=== PATIENT | female | born 2000 | race Caucasian/White ===

== ENCOUNTER 2024-09-14 08:39 | Outpatient (AMB) | payer OTHER, SELFPAY ==
--- NOTE | 2024-09-14 08:40 | A.OFFVIS_ITS ---
Vital Signs 09/14/24 08:43 Height 5 ft 8 in Weight 127 lb 3.307 oz BMI 19.3 BP 120/80 Blood Pressure Location Lt brachial Position Sitting Pulse 78 Pulse Source Pulse Oximeter Pulse Oximetry (%) 98 Oxygen Delivery Method Room Air Intake Visit Reasons: PsA Intake Note: Patient presents today for a PsA follow up. Allergies celebrex Allergy (Intermediate, Uncoded 09/14/24 08:44) Rash HPI HPI PsA: Details: She feels well. No recent flares. She had influenza a in July and received Tamiflu. Recovered. On sulfasalazine 1 g twice a day. Review of Systems Const All systems reviewed & are unremarkable except as noted in HPI and below Physical Exam Vital Signs: Last Vital Signs Pulse 78 09/14/24 08:43 BP 120/80 09/14/24 08:43 Pulse Ox 98 09/14/24 08:43 Oxygen Delivery Method Room Air 09/14/24 08:43 BMI result Body Mass Index 19.3 Const Other: General: Comfortable CVS: RRR Respiratory: clear to auscultation bilaterally. Good respiratory effort Skin: No lesions seen MSK: No tenderness of any joint. No synovitis. Normal range of motion of upper extremity and lower extremity. Assessment & Plan Assessment & Plan (1) Psoriatic arthritis: Comment: In remission on monotherapy with sulfasalazine. Labs from May 2024 reviewed. Rheumatology history: Presenting with episodic joint swelling. Sulfasalazine 12/2020- Code(s): L40.50 - Arthropathic psoriasis, unspecified Category: Medical Plan: Labs due for disease and drug monitoring on high-risk medication. Per patient's insurance labs are required to be done at [email or web address]. Lab requisition given to patient. Continue sulfasalazine 1000 mg twice a day Return to clinic in 3 months (2) Other ad terminal makeup operator (current) drug therapy: Code(s): Z79.899 - Other group home (current) drug therapy Category: Medical Plan: See above Orders: Orders Complete Blood Count Auto Diff Today Z79.60 - [facility] (current) use of unspecified immunomodulators and immunosuppressants Creatinine Today Z79.60 - terminal supervisor (current) use of unspecified immunomodulators and immunosuppressants Erythrocyte Sedimentation Rate Today Z79.899 - Other group home (current) drug therapy C Reactive Protein Today Z79.899 - Other group home (current) drug therapy Alanine Aminotransferase 12/13/24 Z79.60 - [facility] (current) use of unspecified immunomodulators and immunosuppressants Alanine Aminotransferase 03/13/25 Z79.60 - [facility] (current) use of unspecified immunomodulators and immunosuppressants Alanine Aminotransferase 06/11/25 Z79.60 - [facility] (current) use of unspecified immunomodulators and immunosuppressants Creatinine Today Z79.60 - terminal supervisor (current) use of unspecified immunomodulators and immunosuppressants Creatinine 12/13/24 Z79.60 - [facility] (current) use of unspecified immunomodulators and immunosuppressants Complete Blood Count Auto Diff Today Z79.60 - [facility] (current) use of unspecified immunomodulators and immunosuppressants Complete Blood Count Auto Diff 12/13/24 Z79.60 - [facility] (current) use of unspecified immunomodulators and immunosuppressants Complete Blood Count Auto Diff 03/13/25 Z79.60 - [facility] (current) use of unspecified immunomodulators and immunosuppressants C Reactive Protein Today Z79.899 - Other ad terminal makeup operator (current) drug therapy C Reactive Protein 03/13/25 Z79.899 - Other ad terminal makeup operator (current) drug therapy C Reactive Protein 06/11/25 Z79.899 - Other ad terminal makeup operator (current) drug therapy Aspartate Amino Transferase Today Z79.60 - [facility] (current) use of unspecified immunomodulators and immunosuppressants Aspartate Amino Transferase 06/11/25 Z79.60 - terminal supervisor (current) use of unspecified immunomodulators and immunosuppressants Creatinine 06/11/25 Z79.60 - terminal supervisor (current) use of unspecified immunomodulators and immunosuppressants Erythrocyte Sedimentation Rate 12/13/24 Z79.899 - Other group home (current) drug therapy Erythrocyte Sedimentation Rate 03/13/25 Z79.899 - Other ad terminal makeup operator (current) drug therapy Erythrocyte Sedimentation Rate 06/11/25 Z79.899 - Other group home (current) drug therapy Alanine Aminotransferase Today Z79.60 - [facility] (current) use of unspecified immunomodulators and immunosuppressants Aspartate Amino Transferase Today Z79.60 - [facility] (current) use of unspecified immunomodulators and immunosuppressants Alanine Aminotransferase Today Z79.60 - [facility] (current) use of unspecified immunomodulators and immunosuppressants Erythrocyte Sedimentation Rate Today Z79.899 - Other group home (current) drug therapy Creatinine 03/13/25 Z79.60 - terminal supervisor (current) use of unspecified immunomodulators and immunosuppressants Complete Blood Count Auto Diff 06/11/25 Z79.60 - terminal supervisor (current) use of unspecified immunomodulators and immunosuppressants C Reactive Protein 12/13/24 Z79.899 - Other ad terminal makeup operator (current) drug therapy Aspartate Amino Transferase 12/13/24 Z79.60 - terminal supervisor (current) use of unspecified immunomodulators and immunosuppressants Aspartate Amino Transferase 03/13/25 Z79.60 - [facility] (current) use of unspecified immunomodulators and immunosuppressants Coding Level of Care Code Est Pt Level 4 (80033) Complex EM visit Add On G2211 Diagnoses Psoriatic arthritis L40.50 Other group home (current) drug therapy Z79.899
[2024-09-14 08:43] VITALS: BP 120/80; PULSE 78; O2SAT 98; BMI 19.3
--- OUTSIDE RECORDS SUMMARY | 2024-09-14 09:18 | XMS_ITS | Encounter Summary ---
Author Organization [facility] Address [address] [place] [address] Phone Care Team Providers Care Deckhand Maintenance Name Role Phone Shama Bojorquez NP Primary Care Provider Reason for Visit * Reason Comments Med Refill Encounter Details Date Type Department Care Team (Late st Contact Info) Description 02/09/2019 Refill [facility] [address] [place] [address] [place] [phone] Liseth Pino DO Encounter for surveillance of contraceptive pills Social History Tobacco Use Types Packs/Day Years Used Date Smoking Tobacco: Never Smokeless Tobacco: Never Comments:Never Smoker Alcohol Use Standard Drinks/Week Comments No 0 (1 standard drink = 0.6 oz pur e alcohol) Comments Unknown Sex and Gender Information Value Date Recorded Sex Assigned at Not on file Legal Sex Female 6:38 PM EDT Gender Identity Not on file Sexual Orientation Straight 06/22/2019 2: 50 PM EST documented as of this encounter Miscellaneous Notes * Telephone Encounter - Beverley Miranda LPN - 02/10/2019 10:34 AM EDT Last [facility] 04/25/18 vb documented in this encounter Plan of Treatment Not on file documented as of this encounter Visit Diagnoses Diagnosis Encounter for surveillance of contraceptive pills documented in this encounter Care Teams Deckhand Maintenance Relationship Specialty Start [place] [address] [place] [address] [place] [phone] PCP - General Pediatrics 10/07/20 documented as of this encounter
--- OUTSIDE RECORDS SUMMARY | 2024-09-14 09:18 | XMS_ITS | Clinical Summary ---
Author Organization [facility] Address [address] [place] [address] Phone Care Team Providers Care Logistics/Shipper Name Role Phone RadShama wray CHYNA Primary Care Provider [phone] Allergies No known active allergies Medications dicyclomine 10 MG capsule TAKE 1 CAPSULE 4 TIMES A DAY FOR 21 DAYS 0 9 Active betamethasone, augmented, 0.05 % ointmentIndication s:Other atopic dermatitis Apply topically 2 (two) times a day as needed (rash). 30 g 1 0 Active norgestimate-ethin yl estradiol (Tri-Previfem) 0.18/0.215/0.25 MG-35 MCG per tabletIndications: Encounter for surveillance of contraceptive pills Take 1 tablet by mouth daily. 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 Irritable bowel syndrome with diarrhea 0 Scoliosis (and kyphoscoliosis), idiopathic 04/16 Overview (10/16/2022): Scoliosis (737.30) Onset: 04/16/2012 Added by: Yasmin Osorio Diagnosis load September 2022 Resolved Problems Problem Noted Date Diagnosed Date Resolved Date Refused influenza vaccine 04/25/2018 Screening examination for pu lmonary tuberculosis 04/27/2017 06/25/2019 Overview (04/25/2018): Screening for pulmonary tuberculosis (V74.1) Onset: 04/27/2017 Added by: Soumya Dowell Anemia 06/19/2015 06/25/2019 Overview (04/25/2018): Anemia, unspecified (285.9) Onset: 06/19/2015 Added by: Liseth Pino Other malaise and fatigue 06/19/2015 Overview (04/25/2018): Fatigue (780.79) Onset: 06/19/2015 Added by: Liseth Pino Viral warts 04/01/2011 06/25/2019 Overview (04/25/2018): Verrucous wart(s), unspecified (078.10) Onset: 04/01/2011 Added by: Milagro Clarke Immunizations Immunization Administration Dates Next Due COVID-19 Pfizer, monovalent, 12+ years 1 DTaP 5 08/26/2004, 2,2000,08/12,2000 Hep B, ped/adol 08/23/2001,2000,2000 Hib (PRP-T) 08/23/2001, 1,2000,05/10 IPV 08/26/2004, 2,2000,05/10 Influenza, injectable, quadr ivalent, preservative free 03/17/2020,04/22/2017 MMR 08/26/2004,03/15/2001 Meningococcal Conj (Menactra) MCV4P 05/11/2016,1 Pneumococcal Conjugate 08/23/2001,2000,2000,05/10 Tdap 04/13/2011 Varicella 04/13/2011,03/15/2001 Family History Medical History Relation Name Comments No Known Problems Father Aquiles No Known Problems Mother Yepawan No Known Problems Sister 1 Dacia Food allergies Sister 2 Ely Relation Name Status Comments Father Aquiles Alive Mother Yeva Alive Sister 1 Dacia Alive Sister 2 Ely Alive Social History Tobacco Use Types Packs/Day Years [...] Orientation Straight 06/22/2019 2: 50 PM EST Last Filed Vital Signs Vital Sign Reading Time Taken Comments Blood Pressure 120/80 08/07/2020 3:43 PM EST Pulse 83 08/07/2020 3:43 PM EST Temperature 36.1 ??C (97 ??F) 08/07/2020 3:43 PM EST Respiratory Rate - - Oxygen Saturation - - Inhaled Oxygen Concentration - - Weight 50.5 kg (111 lb 6.4 oz) 08/07/2020 3:43 P M EST Height 173 cm (5' 8.11 ) 08/07/2020 3:43 PM EST Body Mass Index 16.88 08/07/2020 3:43 PM EST Plan of Treatment Health Maintenance Due Date Last Done Comments HPV Vaccines (1 - 3-dose series) 02/25/2015 DTaP,Tdap,and Td Vaccines (7 - Td or Tdap) 04/13/2021 04/13/2011, 08/26/2004, 11/28/2001, Additional history exists Influenza Vaccines (#1) 2024 03/17/2020, 04/22 COVID-19 Vaccine ( season) 2024 10/31/2020, 10/10/2020 HIB Vaccines Completed 08/23/2001, 09/2000, 2000, Additional history exists Hepatitis B Vaccines Completed 08/23/2001, 2000, 2000 Pneumococcal Vaccine Completed 08/23/2001, 2000, 2000, Additional history exists IPV Vaccines Completed 08/26/2004, 11/19, 2000, Additional history exists MMR Vaccines Completed 08/26/2004, 03/15/2001 Varicella Vaccines Completed 04/13/2011, 03/15/2001 Meningococcal Vaccine Completed 05/11/2016, 011 Hepatitis A Vaccines Aged Out No long er eligible based on patient's age to complete this topic Men B Vaccine Aged Out No longer elig ible based on patient's age to complete this topic Procedures * Due to [place] dateIITians law, this organization might not be sharing sensitive test results. Procedure Name Priority Date/Time Associated Diagnosis Comments CHLAMYDIA AND GONORRHEA, AMPLIFIED Routine 06/22/2019 2:36 PM EST Well adult exam from Last 3 Months or Most Recently Relevant to Health Maintenance Results * Due to [place] dateIITians law, this organization might not be sharing sensitive test results. * Chlamydia and Gonorrhea, Amplified (06/22/2019 2:36 PM EST) Chlamydia Trachomatis, DNA Probe NEGATIVE (NEG) [facility] Comment: No Chlamydia Trachomatis RNA detected in this patient's sample ? (REFERENCE RANGE/NORMAL VALUE: NOT DETECTED) ? Note: This test uses immigration associate- mediated amplification method to detect rRNA from C. Trachomatis URINE GC AMP PROBE NEGATIVE (NEG) [facility] Comment: No Neisseria Gonorrhoeae RNA detected in this patient's sample ? (REFERENCE RANGE/NORMAL VALUE: NOT DETECTED) ? NOTE: This test uses immigration associate-mediated amplification method to detect rRNA from N.Gonorrhoeae. A negative result does not preclude infection. In the case of a negative urine result, testing of an endocervical(female) or urethral (male) specimen is recommended if there is high clinical suspicion of infection. Due to very high sensitivity of Nucleic Acid Amplification Test, false positive results may occur. Therefore, specimen handling is extremely important. In patients in whom the disease is unlikely, additional sample for testing should be considered after an initial positive result. The performance characteristics of this test have not been evaluated in children. The Aptima Combo2 assay is not intended for the evaluation of suspected sexual abuse or for other medico-legal indications. The ordering provider should assess if the patient had consensual sex without risk of sexual abuse. Consult the [facility] if needed. Contact phone number . Therapeutic failure or success cannot be determined with the Aptima Combo2 assay since nucleic acid may persist following appropriate antimicrobial therapy. The Centers for Disease Control and Prevention (CDC) recommends confirmatory retesting using culture or a different nucleic acid amplification test when positive results occur, if indicated. Testing performed or reported by [facility], a Service of [facility], [address] [place] [address] Marc Partida MD, Associate Engineer Urine 06/22/2019 2:36 PM EST 06/22/2019 10:59 PM EST Liseth Pino DO LAB MICROBIOLOGY - GENERAL ORDE MANOLO Final Result [facility] from Last 3 Months or Most Recently Relevant to Health Maintenance Insurance [facility] Care Teams Logistics/Shipper Relationship Specialty Start Date End Date Shama Bojorquez NP [address] [place] [id number] PCP - General Pediatrics 10/07/20
--- OUTSIDE RECORDS SUMMARY | 2024-09-14 09:19 | XMS_ITS | Encounter Summary ---
Author Organization [facility] Address [address] [place] [address] Phone Care Team Providers Care Well Driller Name Role Phone Shama Bojorquez NP Primary Care Provider [phone] Encounter Details Date Type Department Care Team (Late st Contact Info) Description 11/11/2010 Conversion Encounter [facility] [address] [place] [address] [place] [phone] Social History Tobacco Use Types Packs/Day Years Used Date Smoking Tobacco: Never Assessed Comments Unknown Sex and Gender Information Value Date Recorded Sex Assigned at Not on file Legal Sex Female 6:38 PM EDT Gender Identity Not on file Sexual Orientation Straight 06/22/2019 2: 50 PM EST documented as of this encounter Plan of Treatment Not on file documented as of this encounter Visit Diagnoses Not on filedocumented in this encounter Care Teams Well Driller Relationship Specialty Start Date End Date Shama Bojorquez NP [address] [place] [address] [place] [phone] PCP - General Pediatrics 10/07/20 documented as of this encounter
== END 2024-09-14 09:13 | disposition home or self-care (01) ==
LOC: HO.RHES 08:40
PROVIDERS: PCP Nurse Practitioner Family; Visit Provider Internal Medicine Rheumatology
DX: L40.50 Arthropathic psoriasis, unspecified (principal); Z79.899 Other long term (current) drug therapy
CPT/HCPCS: 99214

== ENCOUNTER → 2024-09-14 08:39 | Outpatient (BNVA) | payer OTHER, SELFPAY | PROVIDERS: PCP Nurse Practitioner Family; Visit Provider Internal Medicine Rheumatology ==

== ENCOUNTER 2024-12-06 13:38 | Outpatient (AMB) | payer OTHER, SELFPAY ==
[2024-12-06 13:41] VITALS: BP 116/60; PULSE 115; O2SAT 98; BMI 19.9
--- NOTE | 2024-12-06 13:41 | MHC.OFFVIS ---
Vital Signs 12/06/24 13:41 Height 5 ft 8 in Weight 131 lb BMI 19.9 BP 116/60 Blood Pressure Location Lt brachial Position Sitting Pulse 115 H Pulse Source Pulse Oximeter Pulse Oximetry (%) 98 Oxygen Delivery Method Room Air Intake Visit Reasons: 3 Months Intake Note: Patient presents today for a PsA follow up. Accompanied by: Self / Same As Patient Allergies celebrex Allergy (Intermediate, Uncoded 09/14/24 08:44) Rash HPI HPI 3 Months: Details: left bursa pain with radiation to groin. Occurs when prolonged sitting. Clicking with walking. Hard to get up from seated position. Physical Exam Vital Signs: Last Vital Signs Pulse 115 H 12/06/24 13:41 BP 116/60 12/06/24 13:41 Pulse Ox 98 12/06/24 13:41 Oxygen Delivery Method Room Air 12/06/24 13:41 BMI result Body Mass Index 19.9 Const Other: General: Comfortable CVS: RRR Respiratory: clear to auscultation bilaterally. Good respiratory effort Skin: No lesions seen MSK: No tenderness of any joint. Tender to palpate left trochanteric bursa. No synovitis. Normal range of motion of upper extremity and lower extremity. Assessment & Plan Assessment & Plan (1) Psoriatic arthritis: Comment: In remission on monotherapy with sulfasalazine. Labs from May 2024 reviewed. Rheumatology history: Presenting with episodic joint swelling. Sulfasalazine 12/2020- Code(s): L40.50 - Arthropathic psoriasis, unspecified Category: Medical Plan: Labs due for disease and drug monitoring on high-risk medication. Per patient's insurance labs are required to be done at [facility]. Patient will do labs today Continue sulfasalazine 1000 mg twice a day Return to clinic in 3 months (2) Other medical terminologist (current) drug therapy: Code(s): Z79.899 - Other medical terminologist (current) drug therapy Category: Medical Plan: See above (3) Trochanteric bursitis, left hip: Comment: Intermittent pain. Discussed conservative management. Code(s): M70.62 - Trochanteric bursitis, left hip Category: Medical Plan: PT ordered for her to do local to her clinical rotation. 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 Use ibuprofen 600 mg every 8 hours prn pain AAOS hip strengthening program printed for patient She will inquire if she has illegible for [employer] PT tahir access Return to clinic in 3 months Orders: Orders PT Evaluation and Treatment Today M70.62 - Trochanteric bursitis, left hip Coding Level of Care Code Est Pt Level 4 (91599) Complex EM visit Add On G2211 Diagnoses Psoriatic arthritis L40.50 Other medical terminologist (current) drug therapy Z79.899 Trochanteric bursitis, left hip M70.62
--- OUTSIDE RECORDS SUMMARY | 2024-12-06 15:39 | XMS_ITS | Encounter Summary ---
Author Organization [facility] Address [address] [place] [address] Phone Care Team Providers Care Company Doctor Name Role Phone Shama Bojorquez NP Primary Care Provider [phone] Reason for Visit * Reason Comments Med Refill Encounter Details Date Type Department Care Team (Late st Contact Info) Description 02/09/2019 Refill [facility] [address] [place] [address] [place] [phone] Liseth Pino DO Encounter for surveillance of [...] LPN - 02/10/2019 10:34 AM EDT Last [facility] 04/25/18 vb documented in this encounter Plan of Treatment Not on file documented as of this encounter Visit Diagnoses Diagnosis Encounter for surveillance of contraceptive pills documented in this encounter Care Teams Company Doctor Relationship Specialty [place] [address] [place] [address] [place] [phone] PCP - General Pediatrics 10/07/20 documented as of this encounter
== END 2024-12-06 14:08 | disposition home or self-care (01) ==
LOC: HO.RHES 13:39
PROVIDERS: PCP Nurse Practitioner Family; Visit Provider Internal Medicine Rheumatology
DX: L40.50 Arthropathic psoriasis, unspecified (principal); Z79.899 Other long term (current) drug therapy; M70.62 Trochanteric bursitis, left hip
CPT/HCPCS: 99214; G2211